=== PATIENT | male | born 1990 | race Caucasian/White ===

== ENCOUNTER 2017-05-31 21:02 | Emergency (ER) | payer BC ==
[~2017-05-31] VITALS: Ht 190.5 cm; Wt 77.1 kg
[2017-05-31] MEDS ORDERED: TYLENOL 3 (21:24)
--- NOTE | 2017-05-31 22:18 | NUR ---
Spoke with Leonarda Reis RN at ER in [place] [facility] @ 2139. Received call back @ 2144, ER Charge nurse states [facility] and ER MD will contact trauma surgeon and will call us back.
--- NOTE | 2017-05-31 22:45 | NUR ---
CALLED [facility] AND SPOKE WITH BERT.WAITING FOR SURGEON TO BE OUT OF SURGERY
--- NOTE | 2017-05-31 23:00 | NUR ---
CALLED [facility] SPOKE WITH BERT.SURGEON DECLINED.[place] ON PHONE TALKING WITH BERT CONCERNING PT.THEY WILL NOT ACCEPT
--- NOTE | 2017-05-31 23:10 | NUR ---
CALLED SURGEON CH[employer] MACHINE OPERATOR DR SHIPMAN LIFT MESSAGE TO CALL BACK
--- NOTE | 2017-05-31 23:30 | NUR ---
CALLED DR SHIPMAN LEFT MESSAGE FOR RETURN CALL
[2017-06-01 00:47] LABS: BASOPHILS # (AUTO) 0.1 K/uL (0.0-8.0); EOSINOPHILS # (AUTO) 0.2 K/uL (0.0-0.7); EOSINOPHILS % (AUTO) 2.1 % (0.0-7.0); HEMATOCRIT 40.9 % (40-50); HEMOGLOBIN 13.6 G/DL (14.0-18.0); LYMPHOCYTES # (AUTO) 2.3 K/UL (0.8-4.8); LYMPHOCYTES % (AUTO) 19.8 % (20.5-51.5); MEAN CORPUSCULAR HEMOGLOBIN 29.5 UUG (27.0-31.0); MEAN CORPUSCULAR HGB CONC 33 g/dL (32.0-37.0); MEAN CORPUSCULAR VOLUME 88.2 FL (82.0-92.0); MONOCYTES # (AUTO) 0.9 K/UL (0.1-1.30); MONOCYTES % (AUTO) 7.6 % (0.0-11.0); NEUTROPHILS # (AUTO) 8.3 K/UL (1.8-8.9); NEUTROPHILS % (AUTO) 69.5 % (38.5-71.5); PLATELET COUNT (AUTO) 254 K/UL (150-450); RED BLOOD CELL COUNT(AUTO) 4.64 MIL/UL (4.7-6.1); WHITE BLOOD COUNT (AUTO) 11.8 K/UL (4.0-11.2)
[2017-06-01 00:51] LABS: POTASSIUM 3.3 mmol/L (3.5-5.1)
[2017-06-01 01:02] LABS: BILIRUBIN,TOTAL 0.5 mg/dL (0.2-1.0); TOTAL PROTEIN, SERUM 7.3 g/dL (6.4-8.2)
--- NOTE | 2017-06-01 03:54 | NUR ---
Patient discharged to home in stable conditon. Written and verbal after care instructions given. Patient verbalizes understanding of instructions. Ambulated from ER with stable gait. Peripheral IV removed prior to dischrage. All belongings with patient. Patient to ambulate home by walking.
[2017-06-01 03:56] VITALS: BP 127/78
== END 2017-06-01 03:57 | disposition home or self-care (01) ==
LOC: ER 21:02
DX: S51.811A Laceration without foreign body of right forearm, initial encounter (principal); W23.0XXA Caught, crushed, jammed, or pinched between moving objects, initial encounter; Y93.89 Activity, other specified; Y92.9 Unspecified place or not applicable; Y99.9 Unspecified external cause status
CPT/HCPCS: 36415; 85025; A4663; J3490; J7050; Q9967